=== PATIENT | female | born 1960 | race African-American/Black ===

== ENCOUNTER 2017-02-22 22:14 | Inpatient (IN) | payer SELFPAY ==
[~2017-02-22] VITALS: Ht 165.1 cm; Wt 117.0 kg
[2017-02-23] MEDS ORDERED: ONDANSETRON HCL 4MG/2ML VIAL IV STA (00:26)
[2017-02-23] MEDS ORDERED: PANTOPRAZOLE SODIUM 40 MG/VIAL IV STA (00:26)
[2017-02-23] MEDS ORDERED: SODIUM CHLORIDE 0.9% 1,000 ML IV ONE (00:26)
[2017-02-23 01:03] LABS: BASOPHILS % 0.8 % (0.0-2.0); EOSINOPHILS % 4.5 % (0.0-5.0); HEMATOCRIT. 36.7 % (36.0-48.0); HEMOGLOBIN. 12.3 g/dL (12.0-16.0); LYMPHOCYTES % 37.7 % (20.0-50.0); MEAN CORPUSCULAR HEMOGLOBIN 29.3 pg (28.0-32.0); MEAN CORPUSCULAR VOLUME 87.2 fL (81.0-99.0); MEAN PLATELET VOLUME 10.7 fl (7.4-10.4); MONOCYTES % 10.5 % (2.0-8.0); NEUTROPHILS % 46.5 % (40.0-76.0); PLATELET 157 x1000/uL (130-400); RED BLOOD CELL COUNT 4.21 mill/uL (4.2-5.4); RED CELL DISTRIBUTION WIDTH 14.7 % (11.6-14.6)
[2017-02-23 01:05] LABS: CHLORIDE 111 mEq/L (98-107)
[2017-02-23 01:14] LABS: CARBON DIOXIDE 25 mEq/L (21-32)
[2017-02-23 01:27] LABS: PARTIAL THROMBOPLASTIN TIME 30.1 sec (23.4-31.0)
[2017-02-23] MEDS ORDERED: SODIUM CHLORIDE 0.9% 1,000 ML IV SCH (02:30)
[2017-02-23] MEDS ORDERED: DEXT 5%/0.45% NACL 1000ML 1,000 ML IV SCH ×2 (08:19→22:45)
[2017-02-23 08:30] VITALS: BP 133/68
[2017-02-23] MEDS ORDERED: ONDANSETRON HCL 4MG/2ML VIAL IV PRN (08:30)
[2017-02-23] MEDS ORDERED: HYDROCODONE/ACETAMINOPHEN 5/325MG TABLET PO PRN (08:30)
[2017-02-23] MEDS ORDERED: LORAZEPAM 2MG/ML CPJ IV PRN (08:30)
[2017-02-23] MEDS ORDERED: MORPHINE SULFATE 4 MG/ML CPJ (NOT FOR IM USE) IV PRN (09:15)
[2017-02-23 10:04] VITALS: BP 133/68
[2017-02-23] MEDS: THIAMINE HCL 100MG TABLET PO SCH (10:55)
[2017-02-23] MEDS: ENOXAPARIN 40MG/0.4ML SYR SUBCUT SCH ×2 (10:57→21:00)
[2017-02-23] MEDS ORDERED: ALEVE PO (11:32)
[2017-02-23] MEDS ORDERED: IBUP-2028 PO (11:32)
[2017-02-23 12:00] VITALS: BP 128/57
[2017-02-23 14:45] LABS: CLARITY URINE CLEAR (CLEAR); COLOR URINE YELLOW (YELLOW); GLUCOSE URINE NEGATIVE (NEGATIVE); KETONES URINE NEGATIVE (NEGATIVE); LEUKOCYTE ESTERASE URINE 1+ (NEGATIVE); NITRITE URINE NEGATIVE (NEGATIVE); OCCULT BLOOD URINE NEGATIVE (NEGATIVE); PROTEIN URINE NEGATIVE (NEGATIVE); SPECIFIC GRAVITY URINE 1.027 (1.005-1.030); UROBILINOGEN URINE 0.2 E.U./dL (0.2-1.0)
[2017-02-23 15:12] LABS: *AMPHETAMINES SCREEN URINE NEGATIVE (NEGATIVE); *BARBITURATES SCREEN URINE NEGATIVE (NEGATIVE); *BENZODIAZEPINES SCREEN URINE NEGATIVE (NEGATIVE); *COCAINE SCREEN URINE NEGATIVE (NEGATIVE); CANNABINOID URINE SCREEN NEGATIVE (NEGATIVE); METHADONE URINE SCREEN NEGATIVE (NEGATIVE); OPIATES URINE SCREEN NEGATIVE (NEGATIVE); PHENCYCLIDINE URINE SCREEN NEGATIVE (NEGATIVE)
[2017-02-23 16:00] VITALS: BP 141/76
[2017-02-23] MEDS ORDERED: LEVOFLOXACIN 500MG PREMIX 100 ML IV SCH (17:00)
[2017-02-23 20:00] VITALS: BP 108/70
[2017-02-23 20:08] LABS: HEMATOCRIT 31.6 % (36.0-48.0); HEMOGLOBIN 10.5 g/dL (12.0-16.0)
[2017-02-23] MEDS: PANTOPRAZOLE SODIUM 40 MG/VIAL IV SCH (20:46)
[2017-02-24] VITALS: BP 135/68
[2017-02-24 04:00] VITALS: BP 144/78
[2017-02-24 06:52] LABS: PARTIAL THROMBOPLASTIN TIME 29.2 sec (23.4-31.0); PROTHROMBIN TIME 10.3 sec (9.4-11.6)
[2017-02-24 07:02] LABS: BASOPHILS % 0.6 % (0.0-2.0); EOSINOPHILS % 5.2 % (0.0-5.0); HEMATOCRIT. 32.5 % (36.0-48.0); HEMOGLOBIN. 10.8 g/dL (12.0-16.0); LYMPHOCYTES % 39.2 % (20.0-50.0); MEAN CORPUSCULAR HEMOGLOBIN 29.4 pg (28.0-32.0); MEAN CORPUSCULAR VOLUME 88.3 fL (81.0-99.0); MEAN PLATELET VOLUME 10.9 fl (7.4-10.4); PLATELET 144 x1000/uL (130-400); RED BLOOD CELL COUNT 3.68 mill/uL (4.2-5.4); RED CELL DISTRIBUTION WIDTH 14.3 % (11.6-14.6)
[2017-02-24 08:00] VITALS: BP 125/82
[2017-02-24] MEDS: THIAMINE HCL 100MG TABLET PO SCH (08:03)
[2017-02-24 08:27] LABS: CARBON DIOXIDE 23 mEq/L (21-32); CHLORIDE 110 mEq/L (98-107)
[2017-02-24] MEDS: PANTOPRAZOLE SODIUM 40 MG/VIAL IV SCH (08:28)
[2017-02-24] MEDS ORDERED: SIMETHICONE 40 MG/0.6 ML 30ML ONE ×2 (11:58→12:38)
[2017-02-24] MEDS ORDERED: SODIUM CHLORIDE 0.9% 10ML VIAL ONE (11:58)
[2017-02-24] MEDS ORDERED: FENTANYL CITRATE/PF 50MCG/ML 2ML VIAL IV PRN (12:38)
[2017-02-24] MEDS ORDERED: MIDAZOLAM HCL 5 MG/5 ML VIAL IV PRN (12:38)
[2017-02-24] MEDS ORDERED: MIDAZOLAM HCL 5 MG/5 ML VIAL ONE (12:39)
[2017-02-24] MEDS ORDERED: FENTANYL CITRATE/PF 50MCG/ML 2ML VIAL ONE (12:39)
[2017-02-24 15:47] VITALS: BP 120/75
== END 2017-02-24 16:27 | disposition home or self-care (01) | DRG 254 ==
LOC: ER 22:14 → 5WST 02-23 02:32 → EDBEDREQ 02-23 02:35 → EDBEDREQTM 02-23 02:35 → ENRESERV 02-23 07:07 → SUPCPDRO 02-23 08:19
PROVIDERS: ADMIT Internal Medicine Nephrology; ATTEND Internal Medicine Nephrology
PROC: 0DB68ZX Excision of Stomach, Via Natural or Artificial Opening Endoscopic, Diagnostic (ICD-10-PCS; principal; 2017-02-24 12:00)
DX: K92.1 Melena (principal); E44.1 Mild protein-calorie malnutrition; I10 Essential (primary) hypertension; N39.0 Urinary tract infection, site not specified; K29.60 Other gastritis without bleeding; K26.9 Duodenal ulcer, unspecified as acute or chronic, without hemorrhage or perforation; K29.80 Duodenitis without bleeding; K44.9 Diaphragmatic hernia without obstruction or gangrene; E86.0 Dehydration; F17.210 Nicotine dependence, cigarettes, uncomplicated; Z79.1 Long term (current) use of non-steroidal anti-inflammatories (NSAID); Z68.41 Body mass index [BMI] 40.0-44.9, adult
CPT/HCPCS: 36415; 80048; 80053; 80305; 81001; 82270; 83735; 85014; 85018; 85025; 85610; 85730; 86850; 86900; 88305; 88312; 88313; 96361; 96374; 96375; 99291; A4216; C9113; J1650; J1956; J2250; J2405; J3010; J7030; J7040